=== PATIENT | male | born 1970 | race Caucasian/White ===

== ENCOUNTER 2017-04-20 23:37 | Inpatient (IN) | payer OTHER ==
[2017-04-20] MEDS ORDERED: ACETAMINOPHEN 325 MG TABLET (FP) PO PRN (23:46)
[2017-04-20] MEDS ORDERED: guaiFENesin/D-METHORPHAN HB 10 ML UNIT-DOSE CUPS PO PRN (23:46)
[2017-04-20] MEDS ORDERED: MAG HYDROX/AL HYDROX/SIMETH 30 ML UNIT-DOSE CUP PO PRN (23:46)
[2017-04-20] MEDS ORDERED: P-EPHED 60MG/TRIPROLIDI 2.5MG TABLET PO PRN (23:46)
[2017-04-20] MEDS ORDERED: IBUPROFEN 400 MG TABLET (FP) PO PRN (23:46)
[2017-04-20] MEDS ORDERED: MENTHOL/PHENOL 1 EACH UD MM PRN (23:46)
[2017-04-20] MEDS ORDERED: MAGNESIUM HYDROX 2400MG/30ML ORAL SUSPENSION 30 ML CUP PO PRN (23:46)
[2017-04-20] MEDS ORDERED: LOPERAMIDE HCL 2 MG CAPSULE PO PRN (23:46)
[2017-04-20] MEDS ORDERED: NICOTINE POLACRILEX 2 MG GUM BUC PRN (23:46)
[2017-04-20] MEDS ORDERED: chlordiazePOXIDE HCL 25 MG CAPSULE PO ONE (23:46)
[2017-04-20] MEDS ORDERED: MAGNESIUM CITRATE 300 ML BOTTLE PO PRN (23:46)
[2017-04-20] MEDS ORDERED: hydrOXYzine PAMOATE 50 MG CAPSULE (FP) PO ONE (23:51)
--- NOTE | 2017-04-20 23:52 | HP ---
CIWA Score - CIWA Score Nausea/Vomitin-Mild Nausea/No Vomiting Muscle Tremors: 4-Moderate,w/Arms Extend Anxiety: 6 Agitation: 6 Paroxysmal Sweats: 3 Orientation: 0-Oriented Tacttile Disturbances: 0-None Auditory Disturbances: 0-None Visual Disturbances: 0-None Headache: 0-None Present CIWA-Ar Total Score: 20 Admission ROS BHS - HPI Chief Complaint: SEEKING DETOX TXMENT FOR ALCOHOL WITHDRAWAL SX'S Allergies/Adverse Reactions: Allergies Allergy/AdvReac Type Severity Reaction Status Date / Time No Known Allergies Allergy Verified 04/20/17 23:46 History of Present Illness: 46 Y.O. MALE WITH ALCOHOL AND CRACK/COCAINE DEPENDENCE HERE FOR DETOX. CLIENT IS SELF REFERRED. DENIES ANY SIGNIFICANT PERIOD OF CLEAN TIME. Exam Limitations: No Limitations - Ebola screening Have you traveled outside of the country in the last 21 days: No Have you had contact with anyone from an Ebola affected area: No Have you been sick,other than usual withdrawal symptoms: No Do you have a fever: No - Review of Systems Constitutional: Other (anxious) EENT: reports: Other (missing teeth) Respiratory: reports: No Symptoms reported Cardiac: reports: No Symptoms Reported GI: reports: No Symptoms Reported : reports: No Symptoms Reported Musculoskeletal: reports: No Symptoms Reported Integumentary: reports: Pruritus, Rash Neuro: reports: Tremors Endocrine: reports: No Symptoms Reported Hematology: reports: No Symptoms Reported Psychiatric: reports: Anxious (bipolar) Other Systems: Reviewed and Negative Patient History - Patient Medical History Hx Anemia: No Hx Asthma: No Hx Chronic Obstructive Pulmonary Disease (COPD): No Hx Cancer: No Hx Cardiac Disorders: No Hx Congestive Heart Failure: No Hx Hypertension: No Hx Hypercholesterolemia: No Hx Pacemaker: No HX Cerebrovascular Accident: No Hx Seizures: No Hx Dementia: No Hx Diabetes: No Hx Gastrointestinal Disorders: No Hx Liver Disease: No Hx Genitourinary Disorders: No Hx Sexually Transmitted Disorders: No Hx Renal Disease (ESRD): No Hx Thyroid Disease: No Hx Human Immunodeficiency Virus (HIV): No Hx Hepatitis C: No Hx Depression: No Hx Suicide Attempt: No Hx Bipolar Disorder: Yes (depakote no complaint) Hx Schizophrenia: No Other Medical History: anxiety - Patient Surgical History Past Surgical History: No - PPD History Previous Implant?: Yes Documented Results: Negative w/o proof Implanted On Prior [facility] Admission?: No PPD to be Administered?: Yes - Smoking Cessation Smoking history: Current every day smoker Have you smoked in the past 12 months: Yes Aproximately how many cigarettes per day: 20 Cigars Per Day: 0 Hx Chewing Tobacco Use: No Initiated information on smoking cessation: Yes 'Breaking Loose' booklet given: 04/21/17 - Substance & Tx. History Hx Alcohol Use: Yes Hx Substance Use: Yes Substance Use Type: Alcohol, Cocaine - Substances Abused beer Route: Oral Frequency: 1-3 times last 30 days Amount used: 06/26oz Age of first use: 23 Date of Last Use: 04/20/17 crack/cocaine Route: Smoking Frequency: 3-6 times per week Amount used: $50 Age of first use: 45 Date of Last Use: 04/19/17 Family Disease History - Family Disease History Family History: Denies Admission Physical Exam [facility] - Physical General Appearance: Yes: Disheveled, Tremorous, Anxious (severe) HEENTM: Yes: EOMI, Normocephalic, Normal Voice, JUAN, Pharynx Normal, Muffled/ Hoarse Voice (due to anxiety) Respiratory: Yes: Chest Non-Tender, Lungs Clear, Normal Breath Sounds, No Respiratory Distress, No Accessory Muscle Use Neck: Yes: No masses,lesions,Nodules, Supple, Trachea in good position Breast: Yes: Breast Exam Deferred Cardiology: Yes: Regular Rhythm, S1, S2, Tachycardia Abdominal: Yes: Normal Bowel Sounds, Non Tender, Flat, Soft Genitourinary: Yes: Within Normal Limits Back: Yes: Normal Inspection Musculoskeletal: Yes: full range of Motion, Gait Steady Extremities: Yes: Normal Capillary Refill, Normal Range of Motion, Non-Tender, Tremors Neurological: Yes: field operations manager II-XII NML intact, Alert, Motor Strength 5/5 Integumentary: Yes: Dry, Warm, Other (scratch figueredo to bue/back and chest) Lymphatic: Yes: Within Normal Limits - Diagnostic (1) Cocaine dependence, uncomplicated Current Visit: Yes Status: Chronic (2) Alcohol dependence with uncomplicated withdrawal Current Visit: Yes Status: Chronic (3) Nicotine dependence Current Visit: Yes Status: Chronic Qualifiers: Nicotine product type: cigarettes Substance use status: uncomplicated Qualified Code(s): F17.210 - Nicotine dependence, cigarettes, uncomplicated Cleared for Admission [facility] - Detox or Rehab [facility] Level of Care: Medically Managed Detox Regimen/Protocol: Librium Claeared for Rehab Admission: No
[2017-04-20 23:54] VITALS: BMI 21.6
--- NOTE | 2017-04-21 00:24 | PN ---
[facility] Progress Note Note: PT NOTED WITH WORSENING ANXIETY SENT TO [facility] FOR EVAL/ CLEARANCE FOR SEVERE PANIC/ ANXIETY ATTACK. C/O TWISTING OF TONGUE (NOTED), EXTREME SHAKING OF THE L LEG, DIFFICULTY TALKING WITH LOCK JAW LIKE PRESENTATION. PT REMAINS AWAKE, ALERT, VERBAL. ABLE TO OPEN MOUTH AND STICK OUT TONGUE, PUFF OUT CHEEKS WHEN ASKED TO. CLIENT LEFT [facility] IN STABLE CONDITION AMBULATING ESCORTED BY [facility].
--- NOTE | 2017-04-21 01:59 | PN ---
[facility] Progress Note Note: client return from [facility]. was given ativan as per client. presented dc papers . client is stable at this time.
[2017-04-21] MEDS: chlordiazePOXIDE HCL 25 MG CAPSULE PO PRN ×2 (02:38→10:09)
[2017-04-21] MEDS ORDERED: hydrOXYzine PAMOATE 50 MG CAPSULE (FP) PO ONE (02:45)
[2017-04-21] MEDS: chlordiazePOXIDE HCL 25 MG CAPSULE PO SCH ×5 (03:03→22:31)
--- NOTE | 2017-04-21 07:28 | CONSULT ---
[facility] Psychiatric Consult - Data Identifying data: 46 Y.O. MALE WITH ALCOHOL AND CRACK/COCAINE DEPENDENCE HERE FOR DETOX. CLIENT IS SELF REFERRED. DENIES ANY SIGNIFICANT PERIOD OF CLEAN TIME.
--- NOTE | 2017-04-21 07:35 | CONSULT ---
[facility] Psychiatric Consult - Data Date of interview: 04/21/17 Admission source: [facility] Identifying data: This is 46 years old single, unemployed, living with significant other, on SSI, male with psychiatric hospitalization history, history of Alcohol and Crack dependency. Patient selfrered here for detoxification. Substance Abuse History: Smoking Cessation. Smoking history: Current every day smoker. Have you smoked in the past 12 months: Yes. Aproximately how many cigarettes per day: 20. Cigars Per Day: 0. Hx Chewing Tobacco Use: No. Initiated information on smoking cessation: Yes. 'Breaking Loose' booklet given : 04/21/17. - Substance & Tx. History. Hx Alcohol Use: Yes. Hx Substance Use : Yes. Substance Use Type: Alcohol, Cocaine. - Substances Abused. beer. Route: Oral. Frequency: 1-3 times last 30 days. Amount used: 5/12oz. Age of first use: 23. Date of Last Use: 04/20/17. crack/cocaine. Route: Smoking. Frequency: 3-6 times per week. Amount used: $50. Age of first use: 45. Date of Last Use: 04/19/17 Medical History: Denies significant medical issues Psychiatric History: Patient reports depression and anxiety history, reports most recent psychiatric admission on 2010 at [facility] for [facility], denies suicidal history, nreports taking prior to admission: Seroquel 100mg po qhs. Benadryl 25mg po qhs. As per chart patient has been on Depakote 500mg po bid in the past, Physical/Sexual Abuse/Trauma History: Denies Additional Comment: Seroquel 100mg po qhs. Benadryl 25mg po qhs Mental Status Exam - Mental Status Exam Alert and Oriented to: Person Cognitive Function: Fair Patient Appearance: Unkempt Mood: Apprehensive Affect: Mood Congruent Patient Behavior: Cooperative Speech Pattern: Delayed Voice Loudness: Mildly Soft/Quiet Thought Process: Circumstantial, Goal Oriented Thought Disorder: Being Controlled Hallucinations: Denies Suicidal Ideation: Denies Homicidal Ideation: Denies Insight/Judgement: Fair Sleep: Difficulty falling asleep Appetite: Weight loss Muscle strength/Tone: Normal Gait/Station: Normal Additional Comments: Seroquel 100mg po qhs. Benadryl 25mg po qhs Psychiatric Findings - Problem List ([place] 1, 2,3) (1) Drug-induced mood disorder Current Visit: Yes Status: Acute (2) Alcohol dependence with uncomplicated withdrawal Current Visit: Yes Status: Chronic (3) Cocaine dependence, uncomplicated Current Visit: Yes Status: Chronic (4) Nicotine dependence Current Visit: Yes Status: Chronic Qualifiers: Nicotine product type: cigarettes Substance use status: uncomplicated Qualified Code(s): F17.210 - Nicotine dependence, cigarettes, uncomplicated (5) Bipolar 1 disorder Current Visit: Yes Status: Suspected - Initial Treatment Plan Initial Treatment Plan: Seroquel 100mg po qhs. Benadryl 25mg po qhs
--- NOTE | 2017-04-21 09:30 | PN ---
S CIWA - CIWA Score Nausea/Vomitin-Mild Nausea/No Vomiting Muscle Tremors: 4-Moderate,w/Arms Extend Anxiety: 4-Mod. Anxious/Guarded Agitation: 4-Moderately Restless Paroxysmal Sweats: 2 Orientation: 0-Oriented Tacttile Disturbances: 1-Very Mild Itch/Numbness Auditory Disturbances: 0-None Visual Disturbances: 0-None Headache: 1-Very Mild CIWA-Ar Total Score: 17 BHS Progress Note (SOAP) Subjective: less anxiety than earlier today, seen by psychiatrist sweat tremor restlessness headache Objective: 04/21/17 09:32 Vital Signs Temperature 98.1 F 04/21/17 06:28 Pulse Rate 81 04/21/17 06:28 Respiratory Rate 18 04/21/17 06:28 Blood Pressure 117/64 04/21/17 06:28 O2 Sat by Pulse Oximetry (%) lab not available Assessment: 04/21/17 09:32 withdrawal sx Plan: continue detox
[2017-04-21 10:08] LABS: HEMATOCRIT 44.8 % (35.4-49); HEMOGLOBIN 15.4 GM/dL (11.7-16.9); MCH 30.7 pg (25.7-33.7); MCHC 34.5 g/dl (32.0-35.9); MEAN CELL VOLUME 89.1 fl (80-96); MEAN PLT VOLUME 8.3 fl (7.5-11.1); PLATELET COUNT 223 K/MM3 (134-434); RBC 5.03 M/mm3 (4.00-5.60); RDW 13.1 % (11.9-15.9); WHITE BLOOD COUNT 8.4 K/mm3 (4.0-10.0)
[2017-04-21] MEDS: PRENATAL VITAMINS W/ FOLIC ACID TABLET (FP) PO SCH (10:08)
[2017-04-21] MEDS: NICOTINE 21 MG/24 HOURS TOPICAL PATCH TD SCH (10:09)
[2017-04-21 10:22] LABS: CHLORIDE 106 mmol/L (98-107); POTASSIUM 3.5 mmol/L (3.5-5.1); SODIUM 139 mmol/L (136-145)
[2017-04-21 10:40] LABS: ALBUMIN 3.5 g/dl (3.4-5.0); ALK PHOS 55 U/L (45-117); ANION GAP 8 (8-16); BILIRUBIN,TOTAL 0.9 mg/dL (0.2-1.0); BLOOD UREA NITROGEN 12 mg/dL (7-18); CALCIUM 8.1 mg/dL (8.5-10.1); CO2 25 mmol/L (21-32); CREATININE 0.8 mg/dL (0.7-1.3); GLUCOSE,RANDOM 82 mg/dL (74-106); SGOT/AST 24 U/L (15-37); SGPT/ALT 18 U/L (12-78); TOT PROT 6.3 g/dl (6.4-8.2)
--- NOTE | 2017-04-21 11:20 | EKG ---
Test Reason : Blood Pressure : / mmHG Vent. Rate : 081 BPM Atrial Rate : 081 BPM P-R Int : 138 ms QRS Dur : 090 ms QT Int : 372 ms P-R-T Axes : 061 -23 050 degrees QTc Int : 432 ms NORMAL SINUS RHYTHM NORMAL ECG NO PREVIOUS ECGS AVAILABLE Confirmed by WILLOW LUNA, DOROTHY ([id number]) on 04/21/2017 11:20:04 AM Referred By: Confirmed By:DOROTHY DAUGHERTY MD
[2017-04-21 14:49] LABS: URINE APPEARANCE CLEAR; URINE BILIRUBIN NEGATIVE (NEGATIVE); URINE BLOOD NEGATIVE (NEGATIVE); URINE COLOR AMBER; URINE GLUCOSE (UA) NEGATIVE (NEGATIVE); URINE KETONE NEGATIVE (NEGATIVE); URINE LEUK ESTERASE NEGATIVE (NEGATIVE); URINE NITRITE NEGATIVE (NEGATIVE); URINE PROTEIN NEGATIVE (NEGATIVE); URINE UROBILINOGEN 4.0 E.U/dl mg/dL (0.2-1.0)
[2017-04-21] MEDS ORDERED: QUEtiapine FUMARATE 100 MG TABLET (FP) PO SCH (22:00)
[2017-04-21] MEDS: THIAMINE HCL 100 MG TABLET (FP) PO SCH (22:31)
[2017-04-21] MEDS: diphenhydrAMINE HCL 25 MG CAPSULE (FP) PO SCH (22:31)
[2017-04-22] MEDS: chlordiazePOXIDE HCL 25 MG CAPSULE PO SCH ×3 (05:37→16:48)
[2017-04-22] MEDS: PRENATAL VITAMINS W/ FOLIC ACID TABLET (FP) PO SCH (09:16)
[2017-04-22] MEDS: hydrOXYzine PAMOATE 50 MG CAPSULE (FP) PO PRN ×2 (09:16→16:46)
[2017-04-22] MEDS: chlordiazePOXIDE HCL 25 MG CAPSULE PO PRN (09:16)
--- NOTE | 2017-04-22 09:21 | PN ---
Psychiatric Progress Note Vital Signs: Vital Signs Period Temp Pulse Resp BP Sys/Kessler Pulse Ox Last 24 Hr 97.1 F-99.9 F 62-93 18-20 86-140/53-96 Date of Session: 04/22/17 Chief Complaint:: Anxiety HPI: As per nursing request patient asking Seroquel for insomnia, during evaluation patient reports takinf [id number] admission: Seroquel 100mg po bid and patient wants to continue his medications at the same dosage. Current Medications: Active Medications Generic Name Dose Route Start Last Admin Trade Name Freq PRN Reason Stop Dose Admin Acetaminophen 650 mg 04/20/17 23:46 Tylenol - PO Q4H PRN FEVER Al Hydroxide/Mg Hydroxide 30 ml 04/20/17 23:46 Mylanta Oral Suspension - PO Q6H PRN DYSPEPSIA Chlordiazepoxide HCl 25 mg 04/21/17 23:00 04/22/17 05:37 Librium - PO 04/22/17 17:01 25 mg [id number] GABRIEL Administration Chlordiazepoxide HCl 15 mg 04/22/17 23:00 Librium - PO 04/23/17 17:01 [id number] GABRIEL Chlordiazepoxide HCl 25 mg 04/20/17 23:46 04/21/17 10:09 Librium - PO 04/23/17 23:45 25 mg Q4H PRN Administration WITHDRAWAL(CONT SUBST) Chlordiazepoxide HCl 10 mg 04/23/17 23:00 Librium - PO 04/24/17 17:01 [id number] GABRIEL Diphenhydramine HCl 25 mg 04/21/17 22:00 04/21/17 22:31 Benadryl - PO 25 mg HS GABRIEL Administration Eucalyptus/Menthol/Phenol/Sorbitol 1 each 04/20/17 23:46 Cepastat Lozenge - MM Q4H PRN SORE THROAT Guaifenesin 10 ml 04/20/17 23:46 Robitussin Dm - PO Q6H PRN COUGH Hydroxyzine Pamoate 50 mg 04/20/17 23:46 04/22/17 09:16 Vistaril - PO 50 mg Q4H PRN Administration AGITATION Ibuprofen 400 mg 04/20/17 23:46 Motrin - PO Q6H PRN PAIN LEVEL 4-6 Loperamide HCl 4 mg 04/20/17 23:46 Imodium - PO Q6H PRN DIARRHEA Magnesium Citrate 300 ml 04/20/17 23:46 Citroma - PO Q48H PRN CONSTIPATION Magnesium Hydroxide 30 ml 04/20/17 23:46 Milk Of Magnesia - PO DAILY PRN CONSTIPATION Nicotine 21 mg 04/21/17 10:00 04/21/17 10:09 Nicoderm Patch - TD Not Given DAILY GABRIEL Nicotine Polacrilex 2 mg 04/20/17 23:46 Nicorette Gum - BUC Q2H PRN NICOTINE REPLACEMENT RX Multivit/Folic Acid/Iron 1 tab 04/21/17 10:00 04/22/17 09:16 Vitamins ([facility]) - PO 1 tab DAILY GABRIEL Administration Pseudoephedrine/Triprolidine 1 combo 04/20/17 23:46 Actifed - PO TID PRN NASAL CONGESTION Quetiapine Fumarate 100 mg 04/21/17 22:00 04/21/17 22:31 Seroquel - PO 100 mg HS GABRIEL Administration Thiamine HCl 100 mg 04/21/17 22:00 04/21/17 22:31 Vitamin B1 - PO 100 mg HS GABRIEL Administration Medication(s) Change(s): Seroquel 100mg po bid Mental Status Exam - Mental Status Exam Alert and Oriented to: Person Cognitive Function: Fair Patient Appearance: Unkempt Mood: Anxious Affect: Constricted Patient Behavior: Cooperative Speech Pattern: Appropriate Voice Loudness: Mildly Soft/Quiet Thought Process: Circumstantial Thought Disorder: Being Controlled Hallucinations: Denies Suicidal Ideation: Denies Homicidal Ideation: Denies Insight/Judgement: Fair Sleep: Difficulty falling asleep Appetite: Weight loss Muscle strength/Tone: Normal Gait/Station: Normal Additional Comments: Seroquel 100mg po bid Psychiatric Treatment Plan - Problem List (1) Drug-induced mood disorder Current Visit: Yes (2) Alcohol dependence with uncomplicated withdrawal Current Visit: Yes (3) Cocaine dependence, uncomplicated Current Visit: Yes (4) Nicotine dependence Current Visit: Yes Qualifiers: Nicotine product type: cigarettes Substance use status: uncomplicated Qualified Code(s): F17.210 - Nicotine dependence, cigarettes, uncomplicated (5) Bipolar 1 disorder Current Visit: Yes Initial treatment plan: Seroquel 100mg po bid
[2017-04-22] MEDS: QUEtiapine FUMARATE 100 MG TABLET (FP) PO SCH ×2 (09:45→22:20)
[2017-04-22] MEDS: NICOTINE 21 MG/24 HOURS TOPICAL PATCH TD SCH (11:06)
--- NOTE | 2017-04-22 12:42 | PN ---
S CIWA - CIWA Score Nausea/Vomitin-Mild Nausea/No Vomiting Muscle Tremors: 4-Moderate,w/Arms Extend Anxiety: 3 Agitation: 3 Paroxysmal Sweats: 1-Minimal Palms Moist Orientation: 0-Oriented Tacttile Disturbances: 1-Very Mild Itch/Numbness Auditory Disturbances: 0-None Visual Disturbances: 0-None Headache: 0-None Present CIWA-Ar Total Score: 13 BHS Progress Note (SOAP) Subjective: sweat tremor anxiety mild gi distress restlessness Objective: 04/22/17 12:43 Vital Signs Temperature 98.1 F 04/22/17 11:54 Pulse Rate 69 04/22/17 11:54 Respiratory Rate 18 04/22/17 11:54 Blood Pressure 105/61 04/22/17 11:54 O2 Sat by Pulse Oximetry (%) Laboratory Last Values WBC 8.4 K/mm3 (4.0-10.0) 04/21/17 06:00 RBC 5.03 M/mm3 (4.00-5.60) 04/21/17 06:00 Hgb 15.4 GM/dL (11.7-16.9) 04/21/17 06:00 Hct 44.8 % (35.4-49) 04/21/17 06:00 MCV 89.1 fl (80-96) 04/21/17 06:00 MCH 30.7 pg (25.7-33.7) 04/21/17 06:00 MCHC 34.5 g/dl (32.0-35.9) 04/21/17 06:00 RDW 13.1 % (11.9-15.9) 04/21/17 06:00 Plt Count 223 K/MM3 (134-434) 04/21/17 06:00 MPV 8.3 fl (7.5-11.1) 04/21/17 06:00 Sodium 139 mmol/L (136-145) 04/21/17 06:00 Potassium 3.5 mmol/L (3.5-5.1) 04/21/17 06:00 Chloride 106 mmol/L (98-107) 04/21/17 06:00 Carbon Dioxide 25 mmol/L (21-32) 04/21/17 06:00 Anion Gap 8 (8-16) 04/21/17 06:00 BUN 12 mg/dL (7-18) 04/21/17 06:00 Creatinine 0.8 mg/dL (0.7-1.3) 04/21/17 06:00 Creat Clearance w eGFR > 60 (>60) 04/21/17 06:00 Random Glucose 82 mg/dL (74-106) 04/21/17 06:00 Calcium 8.1 mg/dL (8.5-10.1) L 04/21/17 06:00 Total Bilirubin 0.9 mg/dL (0.2-1.0) 04/21/17 06:00 AST 24 U/L (15-37) 04/21/17 06:00 ALT 18 U/L (12-78) 04/21/17 06:00 Alkaline Phosphatase 55 U/L (45-117) 04/21/17 06:00 Total Protein 6.3 g/dl (6.4-8.2) L 04/21/17 06:00 Albumin 3.5 g/dl (3.4-5.0) 04/21/17 06:00 Urine Color Pati 04/21/17 13:40 Urine Appearance Clear 04/21/17 13:40 Urine pH 5.0 (5.0-8.0) 04/21/17 13:40 Ur Specific Pringle 1.027 (1.001-1.035) 04/21/17 13:40 Urine Protein Negative (NEGATIVE) 04/21/17 13:40 Urine Glucose (UA) Negative (NEGATIVE) 04/21/17 13:40 Urine Ketones Negative (NEGATIVE) 04/21/17 13:40 Urine Blood Negative (NEGATIVE) 04/21/17 13:40 Urine Nitrite Negative (NEGATIVE) 04/21/17 13:40 Urine Bilirubin Negative (NEGATIVE) 04/21/17 13:40 Urine Urobilinogen 4.0 e.u/dl mg/dL (0.2-1.0) 04/21/17 13:40 Ur Leukocyte Esterase Negative (NEGATIVE) 04/21/17 13:40 Valproic Acid < 3.000 ug/ml (50-100) L 04/21/17 06:00 RPR Titer Nonreactive (NONREACTIVE) 04/21/17 06:00 lab noted Assessment: 04/22/17 12:43 withdrawal sx Plan: continue detox
[2017-04-22] MEDS: diphenhydrAMINE HCL 25 MG CAPSULE (FP) PO SCH (22:20)
[2017-04-22] MEDS: chlordiazePOXIDE 5 MG CAPSULE PO SCH (22:20)
[2017-04-22] MEDS: THIAMINE HCL 100 MG TABLET (FP) PO SCH (22:20)
[2017-04-23] MEDS: chlordiazePOXIDE 5 MG CAPSULE PO SCH (05:01)
[2017-04-23] MEDS: hydrOXYzine PAMOATE 50 MG CAPSULE (FP) PO PRN (08:27)
--- NOTE | 2017-04-23 08:32 | DS ---
[facility] Detox Discharge Summary Admission Date: 04/20/17 Discharge Date: 04/23/17 - History Present History: Alcohol Dependence, Cocaine Dependence - Physical Exam Results Vital Signs: Vital Signs Temperature 97.7 F 04/23/17 06:28 Pulse Rate 65 04/23/17 06:28 Respiratory Rate 18 04/23/17 06:28 Blood Pressure 99/60 04/23/17 06:28 O2 Sat by Pulse Oximetry (%) - Treatment Hospital Course: Detox Protocol Followed - Medication Discharge Medications: Ambulatory Orders Benztropine Mesylate [Cogentin -] 0.5 mg PO DAILY 04/20/17 Divalproex [Depakote -] 500 mg PO BID 04/20/17 Diphenhydramine HCl [Benadryl Capsule -] 25 mg PO HS #30 capsule 04/21/17 Gabapentin 04/21/17 Quetiapine Fumarate [Seroquel] 100 mg PO HS #30 tablet 04/21/17 Quetiapine Fumarate [Seroquel] 100 mg PO BID #60 tablet 04/22/17 - Diagnosis (1) Alcohol dependence with uncomplicated withdrawal Current Visit: Yes Status: Chronic (2) Cocaine dependence, uncomplicated Current Visit: Yes Status: Chronic (3) Nicotine dependence Current Visit: Yes Status: Chronic Qualifiers: Nicotine product type: cigarettes Substance use status: uncomplicated Qualified Code(s): F17.210 - Nicotine dependence, cigarettes, uncomplicated - AMA Did Patient Leave Against Medical Advice: Yes (pt states he just wants to leave. )
[2017-04-23] MEDS: QUEtiapine FUMARATE 100 MG TABLET (FP) PO SCH (09:05)
[2017-04-23] MEDS: PRENATAL VITAMINS W/ FOLIC ACID TABLET (FP) PO SCH (09:05)
[2017-04-23] MEDS: NICOTINE 21 MG/24 HOURS TOPICAL PATCH TD SCH (09:05)
[2017-04-23 09:40] VITALS: BP 117/59; PULSE 84; TEMP 98.4
[2017-04-23] MEDS ORDERED: chlordiazePOXIDE HCL 10 MG CAPSULE PO SCH (23:00)
== END 2017-04-23 09:12 | disposition left against medical advice (07) | DRG 770 ==
LOC: YASAS 23:37 → Y6N 23:50
PROVIDERS: ADMIT Internal Medicine; ATTEND Internal Medicine
PROC: HZ2ZZZZ Detoxification Services for Substance Abuse Treatment (ICD-10-PCS; principal; 2017-04-20)
DX: F10.230 Alcohol dependence with withdrawal, uncomplicated (principal); F14.20 Cocaine dependence, uncomplicated; F17.210 Nicotine dependence, cigarettes, uncomplicated; F19.24 Other psychoactive substance dependence with psychoactive substance-induced mood disorder; F31.89 Other bipolar disorder; F41.0 Panic disorder [episodic paroxysmal anxiety]; R00.0 Tachycardia, unspecified
CPT/HCPCS: 36415; 80053; 80164; 81003; 85027; 86593; 93005; 93010

== ENCOUNTER 2021-04-29 14:59 | Inpatient (IN) | payer OTHER ==
[2021-04-29 17:05] VITALS: BMI 23.6
[2021-04-29] MEDS ORDERED: BISMUTH SUBSALICYLATE 524 MG/30 ML PO PRN (18:07)
[2021-04-29] MEDS ORDERED: NICOTINE 10 MG CARTRIDGE (INHALER) IH PRN (18:07)
[2021-04-29] MEDS ORDERED: hydrOXYzine PAMOATE 25 MG CAPSULE (FP) PO PRN (18:07)
[2021-04-29] MEDS ORDERED: METHOCARBAMOL 500 MG TABLET PO PRN (18:07)
[2021-04-29] MEDS ORDERED: LOPERAMIDE HCL 2 MG CAPSULE PO PRN (18:07)
[2021-04-29] MEDS ORDERED: IBUPROFEN 400 MG TABLET (FP) PO PRN (18:07)
[2021-04-29] MEDS ORDERED: ACETAMINOPHEN 325 MG TABLET (FP) PO PRN ×2 (18:07)
[2021-04-29] MEDS ORDERED: ONDANSETRON *ODT* 4 MG TABLET SL PRN (18:07)
[2021-04-29] MEDS ORDERED: MAG HYDROX/AL HYDROX/SIMETH 30 ML UNIT-DOSE CUP PO PRN (18:07)
[2021-04-29] MEDS ORDERED: MENTHOL/PHENOL 1 EACH UD MM PRN (18:07)
[2021-04-29] MEDS ORDERED: MAGNESIUM HYDROX 2400MG/30ML ORAL SUSPENSION 30 ML CUP PO PRN (18:07)
[2021-04-29] MEDS ORDERED: MAGNESIUM CITRATE 300 ML BOTTLE PO PRN (18:07)
[2021-04-29] MEDS ORDERED: MELATONIN 5 MG TABLETS PO PRN (18:07)
[2021-04-29 21:54] VITALS: BP 121/65; PULSE 79; TEMP 97.3
[2021-04-29] MEDS ORDERED: THIAMINE HCL 100 MG TABLET (FP) PO SCH (22:00)
[2021-04-30] MEDS ORDERED: PRENATAL VITAMINS W/ FOLIC ACID TABLET (FP) PO SCH (10:00)
== END 2021-04-29 23:25 | disposition left against medical advice (07) | DRG 770 ==
LOC: YASAS 14:59 → Y3N 19:44
PROVIDERS: ADMIT Allergy & Immunology; ATTEND Allergy & Immunology
PROC: HZ2ZZZZ Detoxification Services for Substance Abuse Treatment (ICD-10-PCS; principal; 2021-04-29)
DX: F10.230 Alcohol dependence with withdrawal, uncomplicated (principal); F14.20 Cocaine dependence, uncomplicated; F17.210 Nicotine dependence, cigarettes, uncomplicated; F20.9 Schizophrenia, unspecified; F31.9 Bipolar disorder, unspecified; Z86.16 Personal history of COVID-19
CPT/HCPCS: 87811